=== PATIENT | female | born 1955 | race Caucasian/White ===

== ENCOUNTER → 2017-01-24 | Outpatient (CLI) | payer OTHER ==
--- NOTE | 2017-01-24 16:52 | PCVCIMAG ---
EXAM: BILATERAL CAROTID DUPLEX INDICATION: Carotid Occlusive Disease. FINDINGS: Doppler Measurements (centimeters per second): RIGHT: Peak CCA-91, Peak ECA-70, Diastolic ICA-30, Peak ICA-82, ICA/CCA Ratio-0.9. LEFT: Peak CCA-104, Peak ECA-107, Diastolic ICA-33, Peak ICA-82, ICA/CCA Ratio-0.8. RIGHT CAROTID: The carotid bulb has no significant plaque. The proximal internal carotid artery shows no significant stenosis. The common carotid artery shows no significant stenosis. The external carotid artery shows no significant stenosis. LEFT CAROTID: The carotid bulb has no significant plaque. The proximal internal carotid artery shows no significant stenosis. The common carotid artery shows no significant stenosis. The external carotid artery shows no significant stenosis. Antegrade flow in both vertebral arteries. IMPRESSION: No significant stenosis of the right internal carotid artery with no significant plaque. No significant stenosis of the left internal carotid artery with no significant plaque. LOC:[place] [id number]
--- NOTE | 2017-01-24 17:05 | PCVCIMAG ---
APPROVED REPORT Exam: Stress Echocardiogram Indication: Coronary calcium, dyspnea, Fam hx CAD Patient Location: Echo lab Stress Nurse: Mary Hughes RN Status: routine HR: 73 bpm Rhythm: NSR Procedure The patient underwent an Exercise Stress Test using the Tin Protocol. Blood pressure, heart rate, and EKG were monitored. An Echocardiogram was performed by power technician in four stages in quad fashion. At peak stress, four selected images were obtained and placed side by side with resting images for comparison. Stress Test Details Stress Test: Exercise stress testing was performed using a Tin protocol. HR Resting HR: 73 bpmMax Heart Rate (APMHR): 157 bpm Max HR Achieved: 160 bpmTarget HR (85% APMHR): 133 bpm % of APMHR: 101 Recovery HR: 96 bpm HR response to stress: Normal HR response to stress BP Resting BP: 112/70 mmHg Max BP: 160/64 mmHg Recovery BP: 144/64 mmHg ECG Resting ECG: Sinus Rhythm Stress ECG: Sinus Rhythm ST Change: Normal Arrhythmia: None Recovery ECG: Sinus Rhythm Recovery Arrhythmia: None Clinical Reason for Termination: Maximal effort Stress Symptoms: None Exercise duration: 12 min 1 sec Highest Stage Achieved: Stage 4: 4.2 mph at 16% grade. Exercise capacity: 13.4 METs Overall Exercise Capacity for Age: Good Pre-Stress Echo The resting Echocardiogram showed normal left ventricular contractility with an estimated Ejection Fraction of about >55%. Normal wall motion in all segments on baseline images. Post-Stress Echo The stress Echocardiogram showed normal left ventricular contractility with an estimated Ejection Fraction of about 60-65%. Normal augmentation of wall motion in all segments on post stress images. Clinical No clinical or ECG evidence for ischemia. Conclusion Clinical Response: Non-ischemic Exercise Capacity: Superior Stress ECG Response: Non-ischemic Stress Echo Images: Non-ischemic Mild mitral and tricuspid regurgitation with PAP of 32 mmHg. Other Information Study Quality: Adequate <Conclusion> Mild mitral and tricuspid regurgitation with PAP of 32 mmHg.
== END | disposition home or self-care (01) ==
LOC: PCVCIMAG 14:53
PROVIDERS: ATTEND Internal Medicine Cardiovascular Disease
DX: I07.1 Rheumatic tricuspid insufficiency (principal); R09.89 Other specified symptoms and signs involving the circulatory and respiratory systems; I25.10 Atherosclerotic heart disease of native coronary artery without angina pectoris; Z82.49 Family history of ischemic heart disease and other diseases of the circulatory system; Z87.891 Personal history of nicotine dependence
CPT/HCPCS: 93325; 93351; 93880